=== PATIENT | female | born 1990 ===

== ENCOUNTER 2017-05-10 08:42 | Inpatient (IN) | payer BC, OTHER ==
[2017-05-10] MEDS ORDERED: Propofol 10 mg/ml Inj (20 ML) ONE (09:40)
[2017-05-10] MEDS ORDERED: Lidocaine Hydrochloride 5 ML INJ ONE (09:41)
[2017-05-10] MEDS ORDERED: Bupivacaine-Epi 0.25%-1:200,000 PF Inj ONE (10:16)
[2017-05-10] MEDS ORDERED: Clindamycin 2% Vaginal Cream(40 gm) ONE (10:17)
[2017-05-10] MEDS ORDERED: ceFAZolin IV 2 gm in Dextrose 1 GM/50 ML BAG IVPB ONE (10:17)
[2017-05-10] MEDS ORDERED: Lactated Ringer's 1,000 ML IV ONE ×2 (12:48→14:15)
[2017-05-10] MEDS ORDERED: Midazolam 2 MG/2 ML VIAL ONE (12:50)
[2017-05-10] MEDS ORDERED: Morphine 4 MG/ML VIAL IV PRN (14:11)
--- NOTE | 2017-05-10 14:12 | PCM.SURG1 ---
Surgeon's Initial Post Op Note - Surgeon's Notes Surgeon: angeline rinaldi md [employer] Supervisor: harrison ESPITIA Type of Anesthesia: General Endo, Local Pre-Operative Diagnosis: hydradenitis supporative Operative Findings: hydradenitis supporative. extensive perivaginal perineal bilateraly deroofed Post-Operative Diagnosis: hydradenitis supporative Operation Performed: excision of hydradenitis suporativa Specimen/Specimens Removed: huydrdadenitis Estimated Blood Loss: EBL {In ML}: 20 Blood Products Given: N/A Drains Used: No Drains Post-Op Condition: Good Date of Surgery/Procedure: 05/10/17 Time of Surgery/Procedure: 14:12
--- NOTE | 2017-05-10 14:13 | PCM.OP ---
Operative Report - Operative Report Date of Surgery/Procedure: 05/10/17 Time of Surgery/Procedure: 14:12 Surgeon: angeline de paz md [employer] Helper: Chace ESPITIA Anesthesia/Sedation: Gen. anesthesia with ET tube Pre-Operative Diagnosis: Hidradenitis supportiva Post-Operative Diagnosis: Hidradenitis supportiva Indication for Surgery: 26 years old. Severe adenoid hidradenitis supportivaT in the the perineum area Operative Findings: Cano stage III recccurent disease in the perineum on the right and left side of the vagina extending towards the rectum bilaterally. s/p surgical excision several times in the past. Procedure/Operation Description: Excision of hydradenitis supporativa bilateraly perineal perivaginalHurley stage II /III recccurent disease. . Detailed operative report. This is a 26 years old female with recurrence hidradenitis multiple times, worsening condition at this time with multiple abscesses in the perineum area both right and left side extending from the vaginal area towards the rectum. Patient is reporting this is debilitating and painful condition preventing her from carrying her daily activities, reporting severe pain and discomfort throughout the day. Patient has tried conservative management several times with long periods of antibiotics as well as prior excisions extensive excisions of hydradenitis in the past, patient is reporting recurrence at this time and the severe manner. Patient is failed recent antibiotics therapy and decision was made to proceed with surgical excision of large lesions in the perineum. After proper consent from the patient she was taken to the operating room and general anesthesia was obtained without difficulty. She was prepped and draped appropriately for excision extensive excision of hydradenitis lesions around the perineum area. Patient was prepped and draped appropriately as well as Ornelas catheter insertion under sterile conditions. Patient was placed in dorsal lithotomy position and legs were placed in adjustable Jac stirrups. Careful attention was placed to avoid over extension and over rotation of the lower extremities. Local anesthetic solution, 0.25% percent Marcaine was utilized to infiltrate the the tissue around the hydradenitis bilaterally. A marking pen was utilized to tyrel the incision sites to include all crypts and extended abscesses that could be palpable and involving this hydradenitis disease. On the right and left side of the perineum approximately 1-1/2 inches incisions were made exposing the infected glands and abscesses. Sharp and blunt dissection was utilized to de- roof the subcutaneous abscesses and infected glands and these were excised and removed en bloc. This incisions were throughout irrigated and cleared of all clots and debris. Careful attention was placed to debride and remove all infected glands including the overlying skin. Careful attention was placed to maintain cosmesis as well as symmetry following the excision. Incisions were throughout irrigated with antibiotic solution. The incisions were closed in multiple layers utilizing 2-0 Vicryl as well as 3-0 Vicryl suture material in continuous fashion. The skin was closed with 4-0 Monocryl in subcutaneous fashion. Pressure dressing were applied to all incisions. Prior to incision patient received prophylactic antibiotics, prior to closure sponge lap and needle count were correct 2. Patient tolerated the procedure well and was taken to recovery room in stable condition. At the end of the procedure excellent hemostasis and cosmesis was achieved. This was exceptionally difficult procedure as the patient had prior excisions of similar lesions in similar sites. Estimated Blood Loss: 20 Blood Replaced: None Sponge/Instrument Count: Sponge lap and needle count correct 2 Drains: None Complications: none Specimen: Sweat glands involved in the hydradenitis excision, deroofed abscesses Discharge & Condition: Patient was discharged home in stable condition the following day
[2017-05-10] MEDS ORDERED: Sodium Chloride 0.9% 1,000 ML IV SCH (14:15)
[2017-05-10] MEDS: HYDROmorphone 0.5 mg/0.5 ml ISec IVP PRN ×3 (14:20→14:55)
[2017-05-10] MEDS ORDERED: ceFAZolin IV 2 gm in Dextrose 2 GM/100 ML BAG IVPB SCH (15:00)
[2017-05-10 16:46] VITALS: RESP 20
[2017-05-10 20:11] VITALS: O2SAT 98
[2017-05-10] MEDS: ceFAZolin IV 2 gm in Dextrose 2 GM/100 ML BAG IVPB SCH (21:25)
[2017-05-11] MEDS: Oxycodone/Acetaminophen 5/325 mg Tab PO PRN ×3 (00:37→12:52)
[2017-05-11] MEDS: ceFAZolin IV 2 gm in Dextrose 2 GM/100 ML BAG IVPB SCH ×2 (04:27→12:32)
[2017-05-11 08:22] LABS: HEMATOCRIT 34.6 % (34.0-47.0); MEAN CELL VOLUME 86.2 fL (81.0-99.0); MEAN CORPUSCULAR HEMOGLOBIN 28.9 pg (27.0-31.0); MEAN CORPUSCULAR HGB CONC 33.5 g/dL (33.0-37.0); MEAN PLATELET VOLUME 8.3 fL (7.2-11.7); RED CELL DISTRIBUTION WIDTH 13.5 % (11.5-14.5); WHITE BLOOD COUNT 8.2 K/uL (4.8-10.8)
[2017-05-11 08:37] LABS: CHLORIDE 102 mmol/L (98-107); POTASSIUM 3.8 mmol/L (3.6-5.2); SODIUM 136 mmol/L (132-148)
[2017-05-11 08:39] LABS: GFR AFRICAN-AMERICAN > 60
[2017-05-11 08:40] LABS: BLOOD UREA NITROGEN 8 mg/dL (7-17); CALCIUM 8.4 mg/dl (8.6-10.4); CARBON DIOXIDE 26 mmol/L (22-30); GLUCOSE,RANDOM 90 mg/dL (65-105)
--- NOTE | 2017-05-11 13:27 | CP.PCM.PN ---
Subjective - Date & Time of Evaluation Date of Evaluation: 05/11/17 Time of Evaluation: 13:24 - Subjective Subjective: Patient states she has pain, but controlled with pain medication. Good appetite , voiding. Denies nausea/vomiting. Objective - Vital Signs/Intake and Output Vital Signs (last 24 hours): Temp Pulse Resp BP Pulse Ox 98.1 F 97 H 20 108/61 98 05/11/17 00:00 05/11/17 00:00 05/11/17 00:00 05/11/17 00:00 05/11/17 00:00 Intake and Output: 05/11/17 05/11/17 06:59 18:59 Intake Total 2400 460 Output Total 1800 Balance 600 460 - Medications Medications: Current Medications Hydromorphone HCl (Dilaudid) 0.5 mg IVP Q10M PRN PRN Reason: Pain, moderate (4-7) Last Admin: 05/10/17 14:55 Dose: 0.5 mg Sodium Chloride (Sodium Chloride 0.9%) 1,000 mls @ 100 mls/hr IV .Q10H JACKELYN Cefazolin Sodium/Dextrose (Ancef Iv 2 Gm Duplex) 2 gm in 100 mls @ 200 mls/hr IVPB Q8H JACKELYN Stop: 05/11/17 13:29 Last Admin: 05/11/17 12:32 Dose: 200 mls/hr Morphine Sulfate (Morphine) 4 mg IV Q4H PRN PRN Reason: Pain, severe (8-10) Ondansetron HCl (Zofran Inj) 4 mg IVP Q6H PRN PRN Reason: Nausea/Vomiting Oxycodone/Acetaminophen (Percocet 5/325 Mg Tab) 2 tab PO Q4 PRN PRN Reason: Pain, moderate (4-7) Stop: 05/13/17 14:12 Last Admin: 05/11/17 12:52 Dose: 2 tab - Labs Labs: 05/11/17 08:09 05/11/17 08:09 - Constitutional Appears: Well, No Acute Distress - Respiratory Exam Respiratory Exam: NORMAL BREATHING PATTERN - Exam Additional comments: minimal bleeding from incision sites. No erythema. Dressing changed a few hours ago, and now scant drainage. No erythema, incisions intact, steristrips intact. No odor or pus. sterile tegaderm and gauze reapplied. Assessment and Plan (1) Vulval hidradenitis suppurativa Assessment & Plan: POD#1 s/p excision -IS/OOB -dressing changes prn, patient instructed not to remove steristrips -keep surgical site clean and dry -d/c home today as per Dr. Meza -call for f/u appointment in 1-2 weeks -work note given for 05/19 -d/w Dr. Meza, agrees with above -rx for percocet #20 -[place] [employer] patient report reviewed, no CDS in last year. Patient counseled on the risks of addiction, physical or psychological dependence, and overdose associated with opioid drugs and the danger of taking opioid drugs with alcohol and other central nervous system depressants, and cautioned patient on storage and disposal. Status: Chronic
[2017-05-11 14:57] VITALS: BP 118/74; PULSE 88; TEMP 98.6
== END 2017-05-11 14:30 | disposition home or self-care (01) | DRG 572 ==
LOC: C.SDS 08:42 → C.9S 14:11 → C.4M 14:33
PROVIDERS: ADMIT Obstetrics & Gynecology; ATTEND Obstetrics & Gynecology
PROC: 0HB9XZZ Excision of Perineum Skin, External Approach (ICD-10-PCS; 2017-05-10)
PROC: 0HBAXZZ Excision of Inguinal Skin, External Approach (ICD-10-PCS; principal; 2017-05-10 12:53)
DX: L73.2 Hidradenitis suppurativa (principal); R10.2 Pelvic and perineal pain